=== PATIENT | female | born 1985 | race African-American/Black ===

== ENCOUNTER 2016-12-01 06:58 | Day surgery (SDC) | payer OTHER ==
[2016-12-01] MEDS ORDERED: ETON68IM3 SQ (07:00)
[2016-12-01] MEDS ORDERED: SUCCINYLCHOLINE 200 MG/10 ML VIAL. ONE (07:06)
[2016-12-01] MEDS ORDERED: fentaNYL PF VIAL 100 MCG/2 ML VIAL ONE (07:06)
[2016-12-01] MEDS ORDERED: DEXAMETHASONE SOD PHOS 20 MG/5 ML VIAL. ONE (07:07)
[2016-12-01] MEDS ORDERED: PROPOFOL 20 ML IV ONE (07:07)
[2016-12-01] MEDS ORDERED: LIDOCAINE 2% PF Vial for OR 5 ML VIAL. ONE (07:07)
[2016-12-01] MEDS ORDERED: SEVOFLURANE 31 TO 60 MINUTES. IH ONE ×2 (07:07→08:21)
[2016-12-01] MEDS ORDERED: ONDANSETRON PF 4 MG/2 ML VIAL. ONE (07:08)
[2016-12-01] MEDS ORDERED: BUPIVACAINE-EPI 0.25%-1:200000 MPF 30 ML VIAL. ONE (07:20)
[2016-12-01 07:58] LABS: NEG OBC UR NEG; POS OBC UR POS
[2016-12-01] MEDS ORDERED: VECURONIUM BOLUS 10 MG VIAL. IV ONE (08:00)
[2016-12-01] MEDS ORDERED: IV RINGERS,LACTATED 1000ML 1,000 ML IV SCH ×2 (08:00→08:28)
[2016-12-01] MEDS ORDERED: 0.9 % SODIUM CHLORIDE 50 ML VIAL. IJ ONE (08:01)
[2016-12-01] MEDS ORDERED: NEOSTIGMINE METHYLSULFATE 5 MG/5 ML SYRINGE. ONE (08:20)
[2016-12-01] MEDS ORDERED: GLYCOPYRROLATE 1 MG/5 ML VIAL. ONE (08:20)
--- NOTE | 2016-12-01 08:29 | DISCH ---
DISCHARGE INSTRUCTIONS Condition on Discharge Condition on Discharge: Stable Activity After Discharge Activity Instructions for Disc: Activity as tolerated Lifting Instructions after Dis: No heavy lifting Driving Instructions after Dis: Do not drive today Diet after Discharge Diet after Discharge: Regular Contacting the DRRosy after DC Call your doctor for: Concerns you may have Follow-Up Follow up with: Dr. Apple in 1 week. WILBER APPLE Jr, MD December 01, 2016 08:29
--- NOTE | 2016-12-01 08:29 | PDOC ---
BRIEF OPERATIVE NOTE Pre-Op Diagnosis Sterilization Post-Op Diagnosis SAme Procedure Performed 1. LPSC BTL 2. Nexplanon Removal Left arm Surgeon Dr. Apple Anesthesia Type: General Blood Loss Less than 5 ml Specimens Obtained Nexplanon Findings nml size uterus with multiple adhesions, nml fallopian tubes and ovaries iain., Nexplanon in left arm Complications none Additional Remarks pt. WILBER Diamond Jr, MD December 01, 2016 08:29
[2016-12-01] MEDS ORDERED: LIDOCAINE 1% 1 ML SYRINGE. ID PRN (08:30)
[2016-12-01] MEDS ORDERED: fentaNYL PF VIAL 100 MCG/2 ML VIAL IV PRN (08:30)
[2016-12-01] MEDS ORDERED: ONDANSETRON PF 4 MG/2 ML VIAL. IV PRN (08:30)
[2016-12-01] MEDS ORDERED: PROCHLORPERAZINE 10 MG/2 ML VIAL. IV PRN (08:30)
[2016-12-01] MEDS: fentaNYL PF VIAL 100 MCG/2 ML VIAL IV PRN ×2 (08:46→09:07)
[2016-12-01] MEDS ORDERED: OXYC-323 PO (09:26)
[2016-12-01 10:00] VITALS: BP 137/86
--- NOTE | 2016-12-01 13:43 | OP ---
DATE OF SURGERY: PROCEDURES: 1. Laparoscopic BTL. 2. Nexplanon removal on left arm. SURGEON: Tristen Apple M.D. ANESTHESIA: GETA. ESTIMATED BLOOD LOSS: Less than 5 mL. COMPLICATIONS: None. FINDINGS: Normal size uterus with multiple adhesions to the abdominal wall, normal fallopian tubes and ovaries bilaterally, Nexplanon on left arm. SUMMARY: A 31-year-old female who desired permanent sterilization. She also requested Nexplanon removal, which was located in the left arm. The patient was counseled on risks, benefits and expectations and voiced a clear understanding to proceed. DESCRIPTION OF PROCEDURE: The patient was taken to surgery suite and placed in dorsal lithotomy position, prepped with Betadine solution for vaginal prep, ChloraPrep for abdominal prep. The Nexplanon removal was to proceed with first. The Nexplanon on the left arm was located and demarcated with ink pen. The area was cleansed with Betadine solution, scalpel 15-blade was utilized to make a vertical skin incision of less than 0.5 cm on left. The Nexplanon was removed with the aid of hemostats. The skin incision was reapproximated using Steri-Strips and Kerlix bandage. We then proceeded with laparoscopic tubal. A bivalve speculum was placed vaginally. Anterior lip of the cervix grasped with a single tooth tenaculum. Uterine acorn manipulator was then placed. The bivalve speculum was removed. A low transverse skin incision was made just below the umbilicus with the scalpel. The Veress needle was then utilized to insufflate the abdomen up to 1-1/2 liters CO2 gas. The Veress needle was then removed. A 5 mm trocar was placed. The scope was positioned. The uterus was normal size, but had multiple adhesions to the abdominal wall. Fallopian tubes and ovaries appeared normal bilaterally. Second incision was made in the left lower quadrant with a scalpel in which an 8 mm trocar was placed. With the aid of the Filshie clip applicator, the Filshie clip was applied to the left fallopian tube and isthmus region totally occluding the fallopian tube. Same process took place with the right fallopian tube. The trocars were removed under direct visualization. The abdomen was allowed to deflate as much as possible along with mechanical manipulation. The two skin incisions were reapproximated using 4-0 Vicryl suture in subcuticular manner. A 0.25% Marcaine with epinephrine was injected at each incision site. The uterine [place] manipulator and single tooth tenaculum were removed. The patient tolerated the procedure well and was taken to recovery room in stable condition. Sponge and needle count correct x 3. TRISTEN APPLE MD DR: HELENA/timur JOB#: [id number] / [id number]
== END 2016-12-01 10:05 | disposition home or self-care (01) ==
LOC: SURG 06:58
PROVIDERS: ATTEND Obstetrics & Gynecology
DX: K66.0 Peritoneal adhesions (postprocedural) (postinfection) (principal)
CPT/HCPCS: 58671; 81025; A4215; J0330; J1100; J2405; J2704; J2710; J3010; J3490; J7120